=== PATIENT | female | born 1970 | race Caucasian/White ===

== ENCOUNTER 2021-12-12 13:11 | Emergency (ER) | payer OTHER ==
[~2021-12-12 13:11] MED LIST: IBUPROFEN800 MG PO; PROTONIX 40MG T40 MG PO; ZANTAC150 MG PO
[2021-12-12 14:05] LABS: BASOPHIL 0.7 % (0-2); EOSINOPHIL 1.4 % (0-5); HCT 45.9 % (37.0-47.0); HGB 15.4 g/dl (12.5-16.0); LYMPHOCYTE 27.4 % (15-48); MCH 29.4 pg (25.0-31.0); MCHC 33.6 g/dL (32.0-36.0); MCV 87.6 fL (78.0-100.0); MONOCYTE 7.1 % (0-12); MPV 11.3 fL (6.0-9.5); NEUTROPHIL 63.1 % (41-80); NRBC 0; PLT 215 K/uL (150-400); RBC 5.24 M/uL (4.20-5.40); RDW 13.2 % (11.5-14.0); WBC 8.8 K/uL (4.0-10.5)
[2021-12-12 14:08] LABS: BILIRUBIN NEGATIVE (NEGATIVE); BLOOD 3+ Ery/uL (NEGATIVE); CLARITY CLEAR (CLEAR); COLOR YELLOW (YELLOW); GLUCOSE (U) NORMAL (NORMAL); LEUKOCYTES NEGATIVE Leu/uL (NEGATIVE); NITRITE NEGATIVE (NEGATIVE); PROTEIN TRACE (LOW) mg/dL (NEGATIVE); SPECIFIC GRAVITY >=1.030 (1.001-1.030); UROBILINOGEN 0.2 mg/dL (0.2-1.0); pH 5.5 (5.0-9.0)
[2021-12-12 14:22] LABS: URINARY RBC TNTC
[2021-12-12 14:44] LABS: ALBUMIN 4.2 g/dL (3.4-5.0); BILIRUBIN - TOTAL 0.7 mg/dL (0.2-1.0); BUN/CREAT RATIO (CALC) 18.1 RATIO; CREATININE 0.83 mg/dL (0.51-0.95); GLOBULIN (CALCULATION) 3.5 g/dL; POTASSIUM 3.9 mmol/L (3.5-5.1); TOTAL PROTEIN 7.7 g/dL (6.4-8.2)
[2021-12-12] MEDS ORDERED: NORCO 5-325 TA1 EACH PO (15:36)
== END 2021-12-12 15:53 | disposition home or self-care (01) ==
LOC: FER 13:11
PROVIDERS: Internal Medicine
DX: N20.0 Calculus of kidney (principal); Z28.310 Unvaccinated for COVID-19
CPT/HCPCS: 36415; 80053; 81001; 82150; 83690; 85025